=== PATIENT | male | born 1980 | race Caucasian/White ===

== ENCOUNTER 2023-08-23 12:03 | Inpatient (IN) | payer OTHER, SELFPAY ==
[2023-08-23] VITALS (23 sets, daily range): BP systolic 123–164; BP diastolic 81–114; BMI 25.1
--- NOTE | 2023-08-23 10:46 | HPS.HSE ---
Family Physician
-
Family Physician: [facility], [facility],
Chief Complaint
-
acute chest and back pain
History of Present Illness
43 y/o white male, PMH notable for current tobacco abuse, occasional marijuana use, mild COVID in 2020. Denies FH CAD.
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 EMS was called, prehospital EKG with anterior ST elevations and STEMI alert was called. In ER, he was given aspirin 324mg, brilinta
180mg, 5000u heparin. CP continued with new radiation to upper back/shoulders, SBP 160s and similar in all four extremities. EKG in ER with worsening anterior ST elevations with now reciprocal inferior ST depression.
Brought emergently to [facility].
Medical History
Past Medical History
Past Medical History: Reports Other (RENAL- New ongoing workup for enlarged kidney)
Additional Past Medical History:
musculoskeletal back pain
Past Surgical History: Reports None
Social History
Tobacco: Smoker (1ppd)
Alcohol: None
Drug: Marijuana (Vapes, 1-2x/week)
Personal:
Living: With Family
Employment: Employed
Family History
Family History: Not pertinent
Allergies / Home Medications
Allergies reflects when Allergies were last updated in [facility].
Home Medications with original date entered in [facility]
Allergy/Medication List:
ALLG: NKDA
MEDS: flexeril- takes prn back pain/spasm, about 3-4x/day
'anti-inflammatory'- unsure of name of med
Review of Systems
-
History Source: Patient
A 12 point ROS was completed and negative except as noted: Yes
Respiratory: Reports Other (dyspnea)
Cardiac: Reports Chest Pain (radiating to back)
Physical Exam
Vital Signs
Vital Signs
Pulse Resp BP Pulse Ox
88 24 164/96 100
08/23/23 10:36 08/23/23 10:36 08/23/23 10:36 08/23/23 10:36
Physical Exam
General: Well Developed, Appears in Distress and Other (Defered d/t urgent nature of cath)
Data Reviewed
-
Medical Tests (Nuc Med, Echo, EKG etc): Image Personally Visualized and interpreted, Report Reviewed by me and Discussed with Physician
Lab Data: Labs Reviewed by me and Discussed with Physician
Impression/Plan
-
PCP: [facility], Saritha Miranda, Patel,
CDY: None prior to admission- Yunior Bacon,
43 y/o white male, PMH notable for current tobacco abuse, occasional marijuana use, mild COVID in 2019. 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 EMS was called, prehospital
EKG with anterior ST elevations and STEMI alert was called. In ER, he was given aspirin 324mg, brilinta 180mg, 5000u heparin. CP continued with new radiation to upper back/shoulders, SBP 160s and similar in all four extremities. EKG in ER with
worsening anterior ST elevations with now reciprocal inferior ST depression.
Brought emergently to [facility].
LHC- 100% prox LAD thrombotic occlusion
s/p thrombectomy, angioplasty and ISAIAH
Integrilin bolus x2 with infusion started
IMPRESSION/PLAN:
Acute Anterior STEMI
s/p prox LAD thrombectomy w/ISAIAH
Admit IVU/monitor tele
First trop 0.017, trend to peak
Integrilin gtt at 13ml/hr for 18 hours
Echo in AM
DAPT w/asa, Brilinta- CM to check cost
new start metoprolol xl 25/d, lisinopril 2.5mg/d
Check lipid profile in AM, new start high intensity statin therapy w/atorvastatin 80/d
cardiac rehab consult
followup at [facility] at d/c
Tobacco abuse/marijuana use-
must quit, pt in agreement
NicoDerm patch ordered
New enlarged kidney with bladder wall thickening-
new finding on CT scan while in [facility] ER for right flank pain 1 week ago.
followed up with urology and scheduled for repeat CT with contrast
right flank pain thought to be musculoskeletal and he was started on flexeril/anti-inflammatory meds with relief of symptoms.
will continue with outpatient workup and care for these issues
--- NOTE | 2023-08-23 10:49 | ED.GENMED ---
History of Present Illness
General
Chief Complaint: Chest Pain
Source: patient and ambulance crew
Time Seen by Provider: 08/23/23 10:45
Travel History
Have you had any contact with someone who has COVID-19?: No
Do you have any symptoms of coronavirus? Fever > 100 degrees, chills, cough, shortness of breath, sore throat, loss of taste or smell, muscle aches, or headache?: No
History of Present Illness
History of Present Illness:
43-year-old male presents to the emergency room complaining of chest pain. Patient was a prehospital STEMI alert. 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 The
discomfort radiated primarily to the left arm though there was some discomfort in the right arm as well. Symptoms began shortly before 911 was called. He describes the arm discomfort as a burning pain. He denies any focal weakness. Pain is rated
at 10 out of 10. He feels like his heart is about to explode. Patient denies any known medical history. He does occasionally use marijuana but denies drug or alcohol use. He specifically denies cocaine or methamphetamine use. Unaware of any
significant family history.
Phy Exam
Physical Exam
Physical Exam:
General: Awake, Alert, Oriented X3. Patient appears uncomfortable
Vitals: Mildly hypertensive
Head: Atraumatic
Eyes: Pupils equal, EOMI
Throat: Airway intact, no exudates
Neck: Trachea midline
Lungs: Clear and equal b/l
Heart: Regular rate, no murmurs
Abd: Soft, Nontender, No pulsatile mass
Neuro: Cranial nerves II through XII intact, no focal weakness, normal sensation throughout
Skin: Warm, dry, no rash
Extremities: pulses equal b/l, no edema
Scores
Heart Score for Chest Pain Patients
STEMI patient?: Yes
Course
Orders/Labs/Results
Orders:
Orders
08/23/23 Lunch
Cholesterol Lowering
At Your Request: Full Participation
Cholesterol Lowering: Sodium, 2 Gram
08/23/23 10:45
Fentanyl Citrate/Pf [Sublimaze] 100 mcg .ROUTE .STK-MED ONE
Heparin 10,000 units .ROUTE .STK-MED ONE
Midazolam HCl [Versed] 2 mg .ROUTE .STK-MED ONE
08/23/23 10:49
CMP [Comprehensive Metabolic Panel] Urgent
Complete Blood Count/With Diff Urgent
PT/INR [Prothrombin Time] Urgent
PTT Urgent
Troponin I Urgent
Heparin 1000 Units/500 ml [Heparin] 1,000 units in 500 ml .ROUTE .STK-MED
Heparin Sodium,Porcine/Ns/Pf [Heparin 2000 Units/1000 ml] 2,000 unit in 1,000 ml .ROUTE .STK-MED
Lidocaine HCl/Pf [Xylocaine-Mpf 1% Vial] 100 mg .ROUTE .STK-MED ONE
Nitroglycerin [Tridil] 1,500 mcg .ROUTE .STK-MED ONE
Verapamil Injectable [Isoptin/Verapamil Injection] 5 mg .ROUTE .STK-MED ONE
08/23/23 10:52
Heparin 5,000 units .ROUTE .STK-MED ONE
Ticagrelor [Brilinta] 180 mg .ROUTE .STK-MED ONE
08/23/23 10:53
Nitroglycerin Sublingual [Nitrostat (Sublingual)] 0.4 mg .ROUTE .STK-MED ONE
08/23/23 10:55
Verapamil Injectable [Isoptin/Verapamil Injection] 5 mg .ROUTE .STK-MED ONE
08/23/23 11:10
Admit Patient As Directed
Co-Sign Provider:
Level of Care: Inpatient admission
Assign to:: IVU
Physician / Group: cbc
Diagnosis: STEMI
Reason for Hospitalization: STEMI, LAD PCI
Expected length of stay greater than two midnights?: Yes
ELOS- Estimated Length of Stay in days: 2
I certify the patient meets the requirements for IP care: Yes
Electrocardiogram (*1) Urgent
Reason for Study: Other
Other Reason for Exam: s/p intervention
Comment: cbc
Code Status As Directed
Resuscitation Status: Full Code
CARDIAC REHAB CONSULT Routine
Co-Sign Provider:
Type of Cardiac Rehab Referral: Outpatient
Diagnosis: STEMI
Date of Diagnosis/Surgery: 08/23/23
Referring Provider: Yunior Bacon
Acetaminophen [Tylenol] 650 mg PO Q4HPRN PRN
Morphine Sulfate 2 mg IV Q1HPRN PRN
Activity As Directed
Activity Level: Out of Bed- Chair
Comment: bed/chair rest for 2 hours then out of bed ad hemalatha
Data Compiler Procedure As Directed
Cardiac Cath Procedure: percutaneous coronary intervention
Intake/ Output As Directed
Frequency: Per unit guidelines
Notify MD As Directed
Notify physician if: immediately for chest pain or bleeding from access site(s)
Radial Artery Hemostasis Method As Directed
Instructions:: 3 mL out at 2 hour posts placement of band
3 mL out at 2 1/2 hours post placement of band
3 mL out at 3 hours post placement of band
Off at 3 1/2 hours post placement of band
If any oozing or hemotoma occurs:: re-inflate band and call provider
Site Checks As Directed
Check access site for bleeding/hematoma: Yes
Comment: on arrival, Q15min x4, Q30min x2, Q1 hr x2, Q2 hr x2, Q4 hr or per
protocol
Vascular Checks As Directed
Location: distal to access site - pulse check
Frequency: Other
Comment: on arrival, Q15min x4, Q30min x2, Q1 hr x2, Q2 hr x2, Q4 hr or per protocol
Vital Signs As Directed
Frequency: Other
Additional Instructions:: on arrival, Q15min x4, Q30min x2, Q1 hr x2, Q2 hr x2, then Q4 hr or per unit
protocol
08/23/23 11:11
DX Deep Vein Thrombosis Video Routine
08/23/23 11:15
0.9% Sodium Chloride 1000 ml [Nss] 1,000 ml IV PER PROTOCOL
Infusion rate in mL/kg/hr:: 1.5
Infusion rate in mL/hr:: 126
Duration of infusion (hours):: 5
EPTIFIBATIDE 75 mg/100 mL [Integrilin] 75,000 mcg in 100 ml IV ORDERED RATE
08/23/23 11:16
Eptifibatide [Integrilin] 20 ml .ROUTE .STK-MED
08/23/23 11:17
EPTIFIBATIDE 75 mg/100 mL [Integrilin] 75,000 mcg in 100 ml .ROUTE .STK-MED
08/23/23 11:48
Case Management Consult ONCE
Case Management Consult: Other
Comment: brilinta cost
08/23/23 12:00
Potassium Chloride [KCl] 20 meq PO ONCE ONE
08/23/23 16:00
Troponin I Q6H
08/23/23 18:00
Atorvastatin [Lipitor] 80 mg PO QPM
Enoxaparin Sodium [Lovenox] 40 mg SC QPM
08/23/23 20:00
Ticagrelor [Brilinta] 90 mg PO BID
08/23/23 22:00
Troponin I Q6H
08/24/23 04:00
Troponin I Q6H
08/24/23 06:00
Echo 2D MMode Color/Doppler Routine
Reason for Study: STEMI
Comment: BACON
Electrocardiogram (*1) IN AM
Reason for Study: Other
Other Reason for Exam: s/p intervention
Comment: cbc
Basic Metabolic Panel IN AM
Cardiovascular Evaluation IN AM
Complete Blood Count/No Diff IN AM
08/24/23 08:00
Aspirin Chewable [Low Strength Aspirin] 81 mg PO DAILY
Lisinopril [Zestril] 2.5 mg PO DAILY
Metoprolol Xl [Toprol Xl] 25 mg PO DAILY
08/25/23 06:00
Basic Metabolic Panel IN AM
Complete Blood Count/No Diff IN AM
Abnormal Lab Results
08/23/23 08/23/23 08/23/23
10:49 11:15 11:39
Carbon Dioxide 19 L mmol/L
(22-30)
Glucose 163 H mg/dl
(70-99)
POC ACT Low Range 342 H Seconds > 397 H Seconds
(116-155) (116-155)
08/23/23 10:49
08/23/23 10:49
Vital Signs
Initial and Last Documented VS:
Initial Vital Signs
BP
164/96
08/23/23 10:30
Last Documented Vital Signs
Pulse Resp BP Pulse Ox
67 24 139/105 100
08/23/23 13:00 08/23/23 10:36 08/23/23 13:00 08/23/23 13:00
MDM/Problems Addressed
Differential Diagnosis Includes:
STEMI from coronary artery disease, STEMI from vasospasm, thoracic aortic dissection
MDM/Problems Addressed:
Patient presents with severe chest pain. EKG is consistent with an anterior wall CO. Pulses are palpable throughout. Sensation is equal throughout. Consideration given to a thoracic dissection. However given his normal peripheral vascular exam
and neurologic exam and the urgency to intervene on what appears to be a LAD patient will be taken promptly to the Data Comp[facility]. Dr. Auguste at the bedside to evaluate the patient.
*Pulse Oximetry
Patient hypoxic: no
*EKG
Interpreted by ED Provider?: Yes
Interpretation: abnormal
Rate: normal
Rhythm: sinus
Ischemia: ST elevation (v2-v4 with reciprocal changes)
*Race Starter Interpretation
Rate: normal
Interpretation: normal
Rhythm: sinus
*Critical Care Note
Total Time (30-74mins, 75-104mins- exclusive of procedures): 20 min
comment:
Critical care statement: A total of 20 minutes of critical care time was provided for this patient. This includes management of unstable vital signs, evaluation of the patient at bedside, reviewing the patient's pertinent medical records, discussion
with consultants, review of old EKGs and review of pertinent medical records. This time with separate from time utilized to perform the aforementioned documented procedures
ED Attending Note
-
Portions of this chart may have been created with voice recognition software.� Occasional wrong word or��sound alike� substitutions may have occurred due to the inherent limitations of voice recognition software.
Discharge Plan
Departure
Patient Disposition: Admit
Date of Disposition: 08/23/23
Time of Disposition: 10:56
Admit to: lab nurse
Presentation/result/management discussed w/ accepting MD/DO: Dr. Auguste
Condition: Serious
Discharge Problem:
Acute ST elevation myocardial infarction (STEMI) of anterior wall
Interventions
Interventions:
*Nursing Disposition Last Done: 08/23/23 10:45
ED- Cardiac Assessment Last Done: 08/23/23 10:46
Discharge Date and Time
Discharge Date/Time: 08/23/23 10:45
[2023-08-23 10:59] LABS: % Basophils 1.1 % (0-2); % Immature Granulocytes 0.5 % (0-0.5); % Lymphocytes 34.9 % (20.5-51.1); % Monocytes 7.2 % (1.7-9.3); % Neutrophils 54.3 % (42.2-75.2); Absolute Basophils 0.1 10^3/uL (0-0.2); Absolute Eosinophils 0.2 10^3/uL (0-0.7); Absolute Lymphocytes 2.8 10^3/uL (1.2-3.4); Absolute Monocytes 0.6 10^3/uL (0.1-0.6); Absolute Neutrophils 4.4 10^3/uL (1.4-6.5); Hematocrit 47.3 % (39.0-52.0); Hemoglobin 16.6 g/dL (13.0-18.0); Mean Corp Hgb Conc. 35.1 g/dL (33.0-37.0); Mean Corpuscular Hgb 29.1 pg (27.0-31.0); Mean Platelet Volume 10.1 fL (7.4-10.4); Nucleated Red Blood Cells % 0 % (-); Platelet Count 301 10^3/uL (130-400); White Blood Cell Count 8.1 10^3/uL (4.8-10.8)
[2023-08-23 11:08] LABS: APTT 24.6 Sec (23.4-35.0); INR 0.95; PT 12.7 Sec (11.4-14.6)
[2023-08-23 11:09] LABS: ALT (SGPT) 31 U/L (0-50); AST (SGOT) 32 U/L (17-59); Alkaline Phosphatase 126 U/L (38-126); Blood Urea Nitrogen 13 mg/dl (9-20); Calcium 10.2 mg/dl (8.4-10.2); Carbon Dioxide 19 mmol/L (22-30); Chloride 106 mmol/L (98-107); Estimated Creatinine Clearance 95 ml/min; Glucose 163 mg/dl (70-99); Potassium 3.8 mmol/L (3.5-5.1); Sodium 136 mmol/L (135-145); Total Bilirubin 0.6 mg/dl (0.2-1.3); Total Protein 7.7 g/dl (6.3-8.2); eGFR > 60.00
[2023-08-23 11:20] LABS: ACT-LR - POC 342 Seconds (116-155)
[2023-08-23 11:21] LABS: Troponin I 0.017 ng/ml
[2023-08-23] MEDS: NSS 1000 IV (12:10)
--- NOTE | 2023-08-23 12:16 | ITS.CL.ANGIO ---
Roll Hauler - Angioplasty
Angioplasty
Procedure Report:
CARDIAC CATHETERIZATION REPORT
Date of Procedure: 08/23/2023
Referring: [facility] emergency room.
INDICATION: Acute ST elevation myocardial infarction.
PROCEDURE:
1. Left heart catheterization.
2. Left ventriculography.
3. Coronary angiography.
4. Aspiration thrombectomy.
5. Successful, IVUS guided PCI of the proximal LAD.
ACCESS:
6 Barbadian right radial artery.
CATHETERS:
1. 6 Barbadian angled pigtail catheter.
2. 6 Barbadian JR4.
3. 6 Barbadian JL 3.5.
4. 6 Barbadian EBU 3.5 guide.
HEMODYNAMIC DATA
Weight (kg): 84.0
AO (s/d/x, mmHg): 145/41/121
LV (s/x mmHg): 146/17 (A wave to 36)
LEFT VENTRICULOGRAPHY: Performed in an CALIXTO projection. Normal-sized ventricle with akinesis of the anterior and anterolateral wall with dyskinesis of the apex and severe reduction in left ventricular systolic function. LV ejection fraction
estimated at 35%. There is no significant mitral valve regurgitation. There is no aortic valve insufficiency. The aortic root is of normal size. The ascending aorta, aortic arch and visualized ascending aorta appear normal without evidence of
dissection.
CORONARY ANGIOGRAPHY
Dominance: Right.
Left Main: Normal size, bifurcating vessel. There is no coronary artery disease.
LAD: Normal size vessel giving rise to 2 significant diagonals. The vessel is acutely occluded in its proximal margin, immediately after the first high diagonal. There are percent lesions in the mid vessel. There is a 50% lesion in the ostium
of the first diagonal.
Ramus: Congenitally absent.
Circumflex: Normal size, nondominant vessel giving rise to 2 obtuse marginals. OM1 is a small vessel, less than 1.5 mm in diameter. OM 2 is a large vessel supplying the majority of the inferolateral wall. This vessel subsequently bifurcates
into 2 daughter vessels. There is no coronary artery disease.
RCA: Large size, dominant vessel with a significant posterolateral arcade. The true RPDA is a relatively small vessel that supplies the proximal inferior interventricular septum. The mid and distal inferior septum are supplied by the distal RV
marginal branch.
INTERVENTION(S)
1. Successful aspiration thrombectomy of the proximal LAD occlusion.
2. Successful IVUS guided PCI of the 100% proximal LAD occlusion (Xience Skypoint 3.0 x 15 ISAIAH, postdilated with a 3.25 NC balloon) with reduction in stenosis to 0%, restoring MICHAEL-3 flow.
Narrative:
The decision was made to proceed with percutaneous coronary intervention. The diagnostic catheter was removed over a wire and a 6Fr EBU 3.5 guiding catheter was advanced to the aortic root and seated in the left main coronary artery. Additional
heparin was given and a Power Turn Flex wire was advanced into the LAD, though the exact position was unclear due to rotation of the heart. The thrombotic, proximal LAD lesion was predilated with a 2.0 x 12 semi-compliant balloon to 12 marcos. This
did improve flow into the LAD, though the exact course was still unclear. The semicompliant balloon was removed and a 3.0 x 12 semicompliant balloon was advanced. The proximal lesion was predilated again, again with some improvement in flow.
There was still a significant thrombus burden and haziness within the proximal LAD. Eptifibatide was given as a double bolus and drip. The decision was made to proceed with aspiration thrombectomy. The GABY catheter was advanced and aspiration
was performed in the proximal LAD. Contents of the catheter showed a small amount of white thrombus.
The GABY catheter was withdrawn and a GuideLiner was advanced for better visualization of the LAD. A Xience Skypoint 3.0 x 15 drug-eluting stent was advanced. The stent was deployed at 12 atmospheres. The stent balloon was removed.
The decision was made to perform intracoronary imaging. An IVUS catheter was advanced through the guiding catheter and into the ostium of the artery. Ring down was performed once the imaging crystal was no longer inside of the guiding catheter. The
IVUS catheter was advanced into the mid LAD. Intravascular ultrasound was performed in a retrograde fashion using a slow pullback. Intracoronary imaging demonstrated significant atherosclerosis within the media of the entire vessel. The deployed
stent appeared to be sized correctly to the inner lumen with mild underexpansion in the mid section..
The IVUS catheter was removed. A 3.25 x 12 noncompliant balloon was advanced into the stent and the stent was postdilated to 12 atmospheres. Angiography was performed in orthogonal views, confirming good stent expansion and an excellent
angiographic result. The coronary wire was withdrawn and the guide was disengaged from the artery. The catheter was removed over a standard J-wire.
Closure Device: Vascular band.
Radiation (mGy): 1113.26
DAP (cm2.Gy): 96.1539
Fluoroscopy time (minutes): 11.1
Sedation time (minutes): 48
CONCLUSIONS
1. Right dominant circulation with a 30% lesion in the mid LAD and ST elevation myocardial infarction due to acute, thrombotic occlusion of the proximal LAD, status post successful aspiration thrombectomy and IVUS guided PCI of the culprit lesion
(Xience Skypoint 3.0 x 15 ISAIAH, postdilated with a 3.25 NC balloon) with reduction in the proximal LAD stenosis to 0%, restoring MICHAEL-3 flow.
2. Mildly elevated filling pressures (LVEDP = 17 mmHg at 84.0 kg) with evidence of diastolic dysfunction (A wave to 36 mmHg).
RECOMMENDATIONS:
1. Expectant management after cardiac catheterization via right radial approach.
2. Limited weight bearing on the right wrist for one week.
3. Continue eptifibatide for 18 hours. Dual antiplatelet therapy with aspirin and ticagrelor for at least 12 months, followed by aspirin indefinitely.
4. Secondary prevention with high-dose, high potency statin.
5. Echocardiogram ordered and pending.
6. Guideline directed medical therapy as hemodynamics tolerate.
7. Referral to cardiac rehab.
Copy to: Yunior Bacon D.O.
Yunior Bacon, DO, FACC, FACP
[2023-08-23] MEDS: TYLENOL 650 MG PO ×2 (12:41→17:20)
[2023-08-23 12:44] LABS: ACT-LR - POC > 397 Seconds (116-155)
[2023-08-23] MEDS: KCL 20 MEQ PO (12:49)
[2023-08-23] MEDS: MORPHINE SULFATE 2 MG IV ×2 (13:11→19:44)
[2023-08-23] MEDS: NICODERM TRANSDERMAL 14 MG TRANSDERM (13:16)
--- NOTE | 2023-08-23 13:27 | CM ---
Chart reviewed. Patient is independent of ADLS, lives with his in a [address], 7 [address], 0 DME. Plan is for the patient to return home. CM to follow
--- NOTE | 2023-08-23 13:28 | CM ---
Pricing on Brilinta through the patient's [employer], ID# [id number], is $125 for 90 day supply and $50 for retail. Patient qualifies for the $5 a month coupon. Will review with the patient.
--- NOTE | 2023-08-23 13:33 | PTCARENOTE ---
Pt c/o increased midsternal chest discomfort, rated 4/10. Dayana Keyes and Dr Bacon notified. Pt med with Morphine 2 mg IV with some relief.
[2023-08-23] MEDS: LIPITOR 80 MG PO (17:22)
[2023-08-23] MEDS: INTEGRILIN 100 IV (18:07)
[2023-08-23] MEDS: ZOFRAN 4 MG IV (18:32)
--- NOTE | 2023-08-23 18:45 | PTCARENOTE ---
Pt attempting to sleep this afternoon, c/o still having back discomfort and chest discomfort that has lessened, med with Tylenol without much relief. Pt later c/o nausea and vomited approx [address] Slater aware. Zofran 4 mg IV ordered
and given with relief.
[2023-08-23] MEDS: MAALOX 30 ML PO (19:16)
--- NOTE | 2023-08-23 19:27 | PTCARENOTE ---
Rec'd Pt post cath, c/o chest pain, rated 3/10, midsternal. 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
--- NOTE | 2023-08-23 19:43 | PTCARENOTE ---
Pt chest discomfort increased this evening mid sternal and back to 5/10. Dr Bacon aware of Pain and elevated BP. EKG ordered and obtained. Maalox 30 ml ordered and given, Pt has had some relief with Maalox, pain decreased from 5/10 to 4/10.
--- NOTE | 2023-08-23 19:50 | PTCARENOTE ---
Patient with 4 out 10 central chest pain and pain between his shoulder blades, describes as squeezing and pulsating pain. Maalox given earlier brought his pain from down to 4. Morphine IV given. BP 133/99, laying on his side. NSR on telemetry,
troponin pending
[2023-08-23] MEDS: BRILINTA 90 MG PO (20:10)
--- NOTE | 2023-08-23 20:23 | W.PN.UPDATE ---
Update Note
Progress Note Update
I was called to the bedside by the nursing staff for recurrent chest pain.
EKG shows ST elevation in the anteroseptal leads, improved from prior but still present. Q waves are present.
The patient reports that he was chest pain free after his PCI for STEMI and then the pain returned.
Chest pain is 4-5/10, similar to the pain that caused him to present this AM.
On exam, he appears generally comfortable.
He is warm and well perfused.
No murmur, rub, gallop.
Initial troponin was 0.017. Second troponin was 'lost'. Replacement troponin now 228.
Given recurrence of pain, we will repeat coronary angiography to ensure he is not having a secondary event (i.e. acute stent thrombosis).
His stable/improving EKG is somewhat reassuring, but the ST elevations persist, making diagnosis more difficult.
I believe that the risk of repeat diagnostic coronary angiography is lower than the risk of untreated stent thrombosis.
--- NOTE | 2023-08-23 20:28 | PTCARENOTE ---
Troponin 228. Dr. Bacon notified, pain 1 out 10 after morphine
--- NOTE | 2023-08-23 21:16 | ITS.CL.CATH ---
[facility] - Catheterization
Cardiac Catheterization
Procedure Report:
CARDIAC CATHETERIZATION REPORT
Date of Procedure: 08/23/2023
Referring: Yunior Bacon D.O.
INDICATION: Recurrent chest pain, concern for acute stent thrombosis.
PROCEDURE:
1. Left heart catheterization.
2. Coronary angiography
3. Left ventriculography.
ACCESS:
6 American right radial artery.
CATHETERS:
1. 5 American JR4.
2. 5 American JL 3.5.
3. 5 American angled pigtail.
HEMODYNAMIC DATA
Weight (kg): 83.9
AO (s/d/x, mmHg): 147/107/126
LV (s/x mmHg): 148/15 (A wave to 34)
LEFT VENTRICULOGRAPHY: Performed in an [place] projection. Normal left ventricular size with severe hypokinesis of the anterior and anterolateral wall from apex to base. Moderately reduced systolic function. Left ventricular ejection fraction
estimated at 35%. There is no mitral valve regurgitation. There is no aortic valve insufficiency. The aortic root, visualized ascending and descending aorta appear normal.
CORONARY ANGIOGRAPHY
Dominance: Right.
Left Main: Normal size, bifurcating vessel. There is no coronary artery disease.
LAD: Normal size vessel giving rise to 2 significant diagonals. A patent stent is visible in the proximal vessel. There is a 30% lesion in the mid LAD. The previously occluded apical LAD is now recanalized though a small amount of residual
thrombus persists in the terminal vessel.
Ramus: Congenitally absent.
Circumflex: Normal size, nondominant vessel giving rise to 2 obtuse marginals. OM1 is a subone 0.5 mm vessel. OM 2 is a large vessel which subsequently bifurcates into 2 daughter vessels and supplies the majority of the inferolateral wall.
There is no coronary artery disease.
RCA: Large size, dominant vessel with a significant posterolateral arcade. The RPDA consists of 2 independent vessels. The true RPDA originates from the distal RCA and supplies the proximal inferior interventricular septum. The mid and distal
inferior septum are supplied by an RPDA branch from the distal RV marginal branch. There is no coronary artery disease.
INTERVENTION(S)
None.
Closure Device: Vascular band.
Radiation (mGy): 313.60
DAP (cm2.Gy): 21.1086
Fluoroscopy time (minutes): 3.2
Sedation time (minutes): 15
CONCLUSIONS
1. Right dominant circulation with a patent stent in the proximal LAD and resolving thrombus in the terminal LAD.
2. Mildly elevated filling pressures (LVEDP = 15 mmHg at 83.9 kg) with evidence of diastolic dysfunction (A wave to 34 mmHg).
3. No epicardial evidence of recurrent acute coronary syndrome.
RECOMMENDATIONS:
1. Expectant management after cardiac catheterization via right radial approach.
2. Limited weight bearing on the right wrist for one week.
3. Routine postprocedure management as previously ordered.
Copy to: Yunior Bacon D.O.
Yunior Bacon DO, FACC, FACP
--- NOTE | 2023-08-23 21:35 | PTCARENOTE ---
Patient received from chemical lab supervisor, no intervention. Right radial band 13 cc of air. POX 98%. Denies chest pain, remains hypertensive 145/106, NSR, at bedside
[2023-08-23] MEDS: XANAX 0.25 MG PO (22:53)
[2023-08-23] MEDS: PERCOCET 5/325 1 TABLET PO (23:27)
--- NOTE | 2023-08-23 23:37 | PTCARENOTE ---
Patient restless and having trouble sleeping. Xanax given. Percocet given for 8 out of 10 pain between his shoulder blades. TR band in place. All air removed. a bedside
[2023-08-24] VITALS (7 sets, daily range): BP systolic 111–135; BP diastolic 76–95
[2023-08-24] MEDS: INTEGRILIN 100 IV (00:09)
--- NOTE | 2023-08-24 01:01 | PTCARENOTE ---
Patient resting comfortable, pain between shoulder blades improved, at bedside
--- NOTE | 2023-08-24 02:22 | PTCARENOTE ---
Patient pain free, feeling better. Right radial dressing CDI. EKG completed, labs collected. BP 135/94, NSR in 80's, call grace in reach
[2023-08-24 02:25] LABS: Hematocrit 43.6 % (39.0-52.0); Hemoglobin 15.8 g/dL (13.0-18.0); Mean Corp Hgb Conc. 36.2 g/dL (33.0-37.0); Mean Corpuscular Hgb 29.3 pg (27.0-31.0); Mean Corpuscular Volume 80.7 fL (80.0-94.0); Mean Platelet Volume 9.9 fL (7.4-10.4); Platelet Count 240 10^3/uL (130-400); Red Cell Dist. Width 12.2 % (11.5-14.5); White Blood Cell Count 14.1 10^3/uL (4.8-10.8)
[2023-08-24 02:48] LABS: Blood Urea Nitrogen 11 mg/dl (9-20); Calcium 9.6 mg/dl (8.4-10.2); Carbon Dioxide 22 mmol/L (22-30); Chloride 101 mmol/L (98-107); Estimated Creatinine Clearance > 125 ml/min; Glucose 119 mg/dl (70-99); HDL Cholesterol 53 mg/dl; LDL Cholesterol, Calculated 132 mg/dl; Potassium 4.4 mmol/L (3.5-5.1); Sodium 134 mmol/L (135-145); Total Cholesterol 206 mg/dl (50-199); Triglyceride 109 mg/dl (10-149); Very Low Density Lipoprotein 21 mg/dl (0-30); eGFR > 60.00
--- NOTE | 2023-08-24 07:10 | W.PN.CD ---
Today's Communication / Plan
-
Increase metoprolol to 25 bid
increase lisinopril to 2.5 bid
monitor
ECHO
Impression / Plan
-
Anterior STEMI
- Successful prox LAD PCI with ISAIAH restoring flow
- Relook angio negative for stent thrombosis
-Peak trop 228
- ECG this AM with Q waves V1-V3 and persistent ST elevations V1-V4 consistent with extensive infarction
- Telem shows SR, VPDs and a 6 beat run of VT
-No CHF sxs and no exam finding suggesting pulm edema
-BP and HR will support increase in Metoprolol succinate to 25 bid and lisinopril to 2.5 bid
- continue DAPT
- need case supervisor to sudhakar jasso and Alva
-ECHO today
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
Lipids
- High intensity statin to get LDL ideally to 55
- Baseline LDL 129, HDL 53
Hyperglycemia
-A1c pending
Today can ambulate lightly and shower in afternoon
Will need monitoring for additional 48 hours given size of infarction. IF continues to have significant runs of NSVT can consider Life Vest
CCT 35min
Physical Exam
Vital Signs/Labs
Vital Signs
Temp Pulse Resp BP Pulse Ox
98.4 F 76 16 129/90 94
08/24/23 05:20 08/24/23 06:30 08/24/23 05:20 08/24/23 05:17 08/24/23 05:20
08/23/23 08/24/23 08/25/23
06:59 06:59 06:59
Actual Weight 185 lb 3.013 oz
08/24/23 02:18
08/24/23 02:18
PT 12.7 Sec (11.4-14.6) 08/23/23 10:49
INR 0.95 08/23/23 10:49
APTT 24.6 Sec (23.4-35.0) 08/23/23 10:49
Triglycerides 109 mg/dl (10-149) 08/24/23 02:18
LDL Cholesterol, Calc 132 mg/dl 08/24/23 02:18
VLDL Cholesterol, Calc 21 mg/dl (0-30) 08/24/23 02:18
HDL Cholesterol 53 mg/dl 08/24/23 02:18
LAB Results
08/23/23 08/23/23 08/23/23
10:49 17:32 19:21
Troponin I 0.017 Cancelled 228.000 H*
08/23/23 08/24/23
22:00 02:18
Troponin I Cancelled 143.000 H* D
Physical Exam
Constitutional: No acute distress and Comfortable
Cardiovascular: Rhythm & rate is regular, S1S2 is normal and Murmur/rub/gallop absent
Respiratory: Respiratory effort normal, Lungs clear to auscul., Wheeze Absent, Crackles Absent and Rhonchi Absent
GI: Soft and Non tender
Neuro/Psych: AO x 3 and Motor deficits absent
Other: Cath Site (clean and dry)
Data Reviewed
-
Date of Service: August 24, 2023
[2023-08-24] MEDS: TOPROL XL 25 MG PO ×2 (07:18→19:44)
[2023-08-24] MEDS: NICODERM TRANSDERMAL 14 MG TRANSDERM (07:18)
[2023-08-24] MEDS: LOW STRENGTH ASPIRIN 81 MG PO (07:18)
[2023-08-24] MEDS: ZESTRIL 2.5 MG PO ×2 (07:18→19:43)
[2023-08-24] MEDS: BRILINTA 90 MG PO ×2 (07:19→19:43)
[2023-08-24] MEDS: ZESTRIL PO (07:31)
[2023-08-24] MEDS: TOPROL XL PO (07:31)
[2023-08-24 09:03] LABS: Glycohemoglobin (HgbA1c) 5.7 % (4.0-5.6)
--- NOTE | 2023-08-24 09:49 | CARDSERVLU ---
Echocardiogram with Lumason completed after protocol screening completed. Allergies verified.
Patent IV site: _Right antecubital site clear____
IV site flushed with 0.9% NaCl pre and post administration.
Diluted bolus method utilized to enhance visualization of ventricular cuello.
Total volume given: ___3_ mL
Patient tolerated all procedures well without complications.
--- NOTE | 2023-08-24 10:33 | CM ---
Pricing on Farxiga 10 mg through patient's [employer] needs a prior authorization. The PA can be called into . The cost will be $50 a month, but the patient qualifies for the $0 copay card
--- NOTE | 2023-08-24 11:02 | PTCARENOTE ---
Pt received from hourly shift manager RN. Jania, resting in bed. NSR on media monitor. VSS. Assessment documented. R radial dressing CDI. Neurovascular checks WDL. Pt without complaint at this time. Pt showered this morning. at bedside.
[2023-08-24] MEDS: LOVENOX 40 MG SC (17:45)
[2023-08-24] MEDS: LIPITOR 80 MG PO (17:45)
--- NOTE | 2023-08-24 21:11 | PTCARENOTE ---
Pt received start of shift, HR SR. Pt in bed with and bedside. Educated pt on purpose of brilinta and importance of medication adherence, pt states understanding. Pt denies any continuous CP (states uncomfortable when lying on L side, rated at
0.5 - 1/10 pain and relieved by repositioning), SOB, or lightheadedness/dizziness. Informed to notify RN if any changes, call grace within reach.
Pt questioning when he may resume sexual activity and when/if he can resume taking blue chew (ED medication).
[2023-08-24] MEDS: BENADRYL 25 MG PO (22:36)
[2023-08-25 04:51] VITALS: BP 125/84
[2023-08-25 05:08] LABS: Hematocrit 47.6 % (39.0-52.0); Hemoglobin 16.8 g/dL (13.0-18.0); Mean Corp Hgb Conc. 35.3 g/dL (33.0-37.0); Mean Corpuscular Hgb 29.6 pg (27.0-31.0); Mean Corpuscular Volume 83.8 fL (80.0-94.0); Mean Platelet Volume 10.1 fL (7.4-10.4); Platelet Count 225 10^3/uL (130-400); Red Blood Cell Count 5.68 10^6/uL (4.70-6.10); White Blood Cell Count 12.6 10^3/uL (4.8-10.8)
[2023-08-25 05:46] LABS: Blood Urea Nitrogen 13 mg/dl (9-20); Calcium 9.7 mg/dl (8.4-10.2); Carbon Dioxide 24 mmol/L (22-30); Chloride 105 mmol/L (98-107); Estimated Creatinine Clearance 116 ml/min; Glucose 99 mg/dl (70-99); Potassium 4.6 mmol/L (3.5-5.1); Sodium 133 mmol/L (135-145); eGFR > 60.00
[2023-08-25 07:43] VITALS: BP 107/81
--- NOTE | 2023-08-25 08:02 | W.PN.CD ---
Today's Communication / Plan
-
Start dapagliflozin.
Case management consult.
Discharge planning.
Impression / Plan
-
Impression/Plan: 43 y/o male admitted with large anterior STEMI.
#Anterior STEMI
-Successful proximal LAD PCI (Xience Skypoint 3.0 x 15 ISAIAH, post dilated with 3.25 NCB), restoring flow.
-Recurrent chest pain with abnormal EKG prompted relook angio, negative for stent thrombosis.
-Troponin peaked at 228.
-ECG shows Q waves V1-V3 and persistent ST elevations V1-V4 consistent with extensive infarction.
-DAPT with ASA and ticagrelor. Case management consult for ticagrelor.
#ICMO
-LVEF ~ 30%.
-No clinical evidence of HFrEF.
-Initiate GDMT as hemodynamics will tolerate.
-Continue metoprolol succinate, lisinopril (started yesterday).
-Start dapagliflozin (case management consult).
#HLD
-New diagnosis.
-Total cholesterol = 206, LDL = 132, HDL = 53, Triglycerides = 109.
-High intensity statin to get LDL ideally to 55.
#Hyperglycemia
-HbA1c = 5.7%.
#PPx
-SCD's for DVT/VTE.
-No role for PPI at this time.
#Dispo
-IVU status.
-Full code.
-Uptitrate medications.
-Possible DC tomorrow.
Critical Care Time = 31 minutes.
Subjective/Interval History:
No acute events.
No subjective complaints.
DATA:
Cardiac Catheterization/PCI, 08/23/2023:
CONCLUSIONS
1. Right dominant circulation with a 30% lesion in the mid LAD and ST elevation myocardial infarction due to acute, thrombotic occlusion of the proximal LAD, status post successful aspiration thrombectomy and IVUS guided PCI of the culprit lesion
(Xience Skypoint 3.0 x 15 ISAIAH, postdilated with a 3.25 NC balloon) with reduction in the proximal LAD stenosis to 0%, restoring MICHAEL-3 flow.
2. Mildly elevated filling pressures (LVEDP = 17 mmHg at 84.0 kg) with evidence of diastolic dysfunction (A wave to 36 mmHg).
Relook Angiography, 08/23/2023:
CONCLUSIONS
1. Right dominant circulation with a patent stent in the proximal LAD and resolving thrombus in the terminal LAD.
2. Mildly elevated filling pressures (LVEDP = 15 mmHg at 83.9 kg) with evidence of diastolic dysfunction (A wave to 34 mmHg).
3. No epicardial evidence of recurrent acute coronary syndrome.
Physical Exam
Vital Signs/Labs
Vital Signs
Temp Pulse Resp BP Pulse Ox
37.0 C 84 16 125/84 97
08/25/23 07:43 08/25/23 07:43 08/25/23 07:43 08/25/23 04:51 08/25/23 07:43
08/23/23 08/24/23 08/25/23
11:59 11:59 11:59
Actual Weight 84 kg
08/25/23 04:59
08/25/23 04:59
PT 12.7 Sec (11.4-14.6) 08/23/23 10:49
INR 0.95 08/23/23 10:49
APTT 24.6 Sec (23.4-35.0) 08/23/23 10:49
Triglycerides 109 mg/dl (10-149) 08/24/23 02:18
LDL Cholesterol, Calc 132 mg/dl 08/24/23 02:18
VLDL Cholesterol, Calc 21 mg/dl (0-30) 08/24/23 02:18
HDL Cholesterol 53 mg/dl 08/24/23 02:18
LAB Results
08/23/23 08/23/23 08/23/23
10:49 17:32 19:21
Troponin I 0.017 Cancelled 228.000 H*
08/23/23 08/24/23
22:00 02:18
Troponin I Cancelled 143.000 H* D
Physical Exam
Constitutional: No acute distress and Comfortable
EENT: Anicteric and Moist mucous membranes
Cardiovascular: Rhythm & rate is regular, Pedal edema is absent, JVD pressure is normal, S1S2 is normal and Murmur/rub/gallop absent
Respiratory: Respiratory effort normal, Lungs clear to auscul., Wheeze Absent, Crackles Absent and Rhonchi Absent
GI: Soft, Distention absent, Flat, Non tender and Normal bowel sounds
Neuro/Psych: AO x 3
Other: Cath Site (Right radial access site is C/D/I.)
Data Reviewed
-
Date of Service: August 25, 2023
Medical Decision Making: Reviewed Test Results, Independent Historian Assessment and Test Interpretation
EKG: Tracing Personally Visualized and interpreted and Report Reviewed by me
Echo: Tracing Personally Visualized and interpreted and Report Reviewed by me
X-Ray/CT/US/MRI/NUC/PET: Image Personally Visualized and interpreted and Report Reviewed by me
Medical Tests (PFT, Pathology etc): Image Personally Visualized and interpreted and Report Reviewed by me
Labs: Labs Reviewed by me
[2023-08-25] MEDS: ZESTRIL 2.5 MG PO ×2 (08:33→20:38)
[2023-08-25] MEDS: TOPROL XL 25 MG PO ×2 (08:33→20:39)
[2023-08-25] MEDS: LOW STRENGTH ASPIRIN 81 MG PO (08:33)
[2023-08-25] MEDS: BRILINTA 90 MG PO ×2 (08:33→20:38)
[2023-08-25] MEDS: NICODERM TRANSDERMAL 14 MG TRANSDERM (08:34)
[2023-08-25] MEDS: FARXIGA 10 MG PO (09:00)
[2023-08-25 11:48] VITALS: BP 99/57
[2023-08-25 15:30] VITALS: BP 111/71
[2023-08-25] MEDS: DULCOLAX 10 MG PO (16:35)
--- NOTE | 2023-08-25 16:36 | PTCARENOTE ---
The patient asked if he could have something to help him have a BM. He stated that he had a small one yesterday but is feeling uncomfortable now and feels he needs a little help. I encourage him to continue to ambulate in the halls. In addition, I
notified Dr. Bacon of the patient's request. Dulcolax was ordered and given to the patient.
[2023-08-25] MEDS: LOVENOX SC (17:38)
[2023-08-25] MEDS: LIPITOR 80 MG PO (17:38)
--- NOTE | 2023-08-25 17:41 | PTCARENOTE ---
The patient has been oob and ambulatory in the halls all shift. His vital signs have been stable. He remains in NSR. He has had no complaint of pain.
[2023-08-25 19:02] VITALS: BP 106/80
[2023-08-25 23:01] VITALS: BP 106/66
[2023-08-26 03:10] VITALS: BP 104/68
[2023-08-26 06:53] VITALS: BP 113/66
--- NOTE | 2023-08-26 08:22 | W.PN.CD ---
Addendum entered and electronically signed by Dipak Reyez MD 08/26/23 09:07:
I saw and examined the patient.
The BRINE ROOM LABORER's note was reviewed and I agree with the note.
Feels well. Denies any symptoms. He has been ambulate in the hallway without symptoms. I reviewed with him the importance of his medications. Also particularly discussed the importance of dual antiplatelet therapy. Agree with plans for
discharge later today.
Original Note:
Today's Communication / Plan
-
d/c home
Impression / Plan
-
Impression/Plan: 43 y/o male admitted with large anterior STEMI.
#Anterior STEMI
-Successful proximal LAD PCI (Xience Skypoint 3.0 x 15 ISAIAH, post dilated with 3.25 NCB), restoring flow.
-Recurrent chest pain with abnormal EKG prompted relook angio, negative for stent thrombosis.
-Troponin peaked at 228.
-ECG shows Q waves V1-V3 and persistent ST elevations V1-V4 consistent with extensive infarction.
-DAPT with ASA and ticagrelor.
#ICMO
-LVEF ~ 30%.
-No clinical evidence of HFrEF.
-Initiate GDMT as hemodynamics will tolerate.
-Continue metoprolol succinate, lisinopril, dapagliflozin
#Hyperlipidemia
-New diagnosis.
-Total cholesterol = 206, LDL = 132, HDL = 53, Triglycerides = 109.
-High intensity statin to get LDL ideally to 55.
#Hyperglycemia
-HbA1c = 5.7%.
#PPx
-SCD's for DVT/VTE.
-No role for PPI at this time.
#Dispo
-tolerating meds. D/C home
Subjective/Interval History:
No acute events.
Denies CP, palps, SOB
DATA:
Cardiac Catheterization/PCI, 08/23/2023:
CONCLUSIONS
1. Right dominant circulation with a 30% lesion in the mid LAD and ST elevation myocardial infarction due to acute, thrombotic occlusion of the proximal LAD, status post successful aspiration thrombectomy and IVUS guided PCI of the culprit lesion
(Xience Skypoint 3.0 x 15 ISAIAH, postdilated with a 3.25 NC balloon) with reduction in the proximal LAD stenosis to 0%, restoring MICHAEL-3 flow.
2. Mildly elevated filling pressures (LVEDP = 17 mmHg at 84.0 kg) with evidence of diastolic dysfunction (A wave to 36 mmHg).
Relook Angiography, 08/23/2023:
CONCLUSIONS
1. Right dominant circulation with a patent stent in the proximal LAD and resolving thrombus in the terminal LAD.
2. Mildly elevated filling pressures (LVEDP = 15 mmHg at 83.9 kg) with evidence of diastolic dysfunction (A wave to 34 mmHg).
3. No epicardial evidence of recurrent acute coronary syndrome.
Physical Exam
Vital Signs/Labs
Vital Signs
Temp Pulse Resp BP Pulse Ox
98.6 F 83 16 113/66 97
08/26/23 03:22 08/26/23 07:00 08/26/23 03:22 08/26/23 06:53 08/26/23 03:22
08/25/23 04:59
08/25/23 04:59
PT 12.7 Sec (11.4-14.6) 08/23/23 10:49
INR 0.95 08/23/23 10:49
APTT 24.6 Sec (23.4-35.0) 08/23/23 10:49
Triglycerides 109 mg/dl (10-149) 08/24/23 02:18
LDL Cholesterol, Calc 132 mg/dl 08/24/23 02:18
VLDL Cholesterol, Calc 21 mg/dl (0-30) 08/24/23 02:18
HDL Cholesterol 53 mg/dl 08/24/23 02:18
LAB Results
08/23/23 08/23/23 08/23/23
10:49 17:32 19:21
Troponin I 0.017 Cancelled 228.000 H*
08/23/23 08/24/23
22:00 02:18
Troponin I Cancelled 143.000 H* D
Physical Exam
Constitutional: No acute distress
Cardiovascular: Rhythm & rate is regular and Pedal edema is absent
Respiratory: Respiratory effort normal and Lungs clear to auscul.
Neuro/Psych: AO x 3
Other: Cath Site (R radial no hematoma, there is a palpable R radial pulse. )
Data Reviewed
-
Date of Service: August 26, 2023
EKG: Other (Tele: NSR 80's)
--- NOTE | 2023-08-26 08:26 | W.DS.TRANS ---
DC Summary - Wood Room Hand
-
Discharge Instructions:
Discharge Diagnosis/Procedures Anterior STEMI
S/p thrombectomy with angioplasty and stent to
left anterior descending artery
Diet Low Cholesterol,2 Gram Sodium
Activity No strenuous activity
Additional Activity For 6 weeks
Driving Restrictions No driving for 24 hours
Bathing Restrictions OK to Shower
Other Services Cardiac Rehab
Specialty Instructions Weigh Daily
Instructions:
Stand-Alone Forms: DC Instructions- Cath/EP Lab
Changes to Home Medications: Yes
Discharge Medications:
DC Medications w/original date entered in [facility]
albuterol sulfate 90 mcg/actuation aerosol inhaler 2 puff inhalation R Q4HPRN PRN sob 08/24/23
cyclobenzaprine 10 mg tablet 10 mg PO TID PRN back spasms 08/24/23
aspirin 81 mg chewable tablet (Children's Aspirin) 81 mg PO DAILY #1 tab 08/25/23
atorvastatin 80 mg tablet 80 mg PO QPM #90 tabs 08/25/23
dapagliflozin propanediol 10 mg tablet (Farxiga) 10 mg PO DAILY #30 tabs 08/25/23
lisinopril 2.5 mg tablet 2.5 mg PO BID #180 tabs 08/25/23
metoprolol succinate 25 mg tablet,extended release 24 hr 25 mg PO BID #180 tabs 08/25/23
nicotine 14 mg/24 hr daily transdermal patch 14 mg transdermal DAILY #30 ea 08/25/23
nitroglycerin 0.4 mg sublingual tablet 0.4 mg sublingual [id number] PRN chest pain #25 tabs 08/25/23
ticagrelor 90 mg tablet (Brilinta) 90 mg PO BID #60 tabs 08/25/23
Home Medication Changes
albuterol sulfate 90 mcg/actuation aerosol inhaler 2 puff inhalation R Q4HPRN PRN sob 08/24/23
cyclobenzaprine 10 mg tablet 10 mg PO TID PRN back spasms 08/24/23
aspirin 81 mg chewable tablet (Children's Aspirin) 81 mg PO DAILY #1 tab 08/25/23
atorvastatin 80 mg tablet 80 mg PO QPM #90 tabs 08/25/23
dapagliflozin propanediol 10 mg tablet (Farxiga) 10 mg PO DAILY #30 tabs 08/25/23
lisinopril 2.5 mg tablet 2.5 mg PO BID #180 tabs 08/25/23
metoprolol succinate 25 mg tablet,extended release 24 hr 25 mg PO BID #180 tabs 08/25/23
nicotine 14 mg/24 hr daily transdermal patch 14 mg transdermal DAILY #30 ea 08/25/23
nitroglycerin 0.4 mg sublingual tablet 0.4 mg sublingual [id number] PRN chest pain #25 tabs 08/25/23
ticagrelor 90 mg tablet (Brilinta) 90 mg PO BID #60 tabs 08/25/23
Pending Results: No
[2023-08-26] MEDS: BRILINTA 90 MG PO (08:34)
[2023-08-26] MEDS: TOPROL XL 25 MG PO (08:35)
[2023-08-26] MEDS: NICODERM TRANSDERMAL 14 MG TRANSDERM (08:35)
[2023-08-26] MEDS: LOW STRENGTH ASPIRIN 81 MG PO (08:35)
[2023-08-26] MEDS: ZESTRIL 2.5 MG PO (08:35)
[2023-08-26] MEDS: FARXIGA 10 MG PO (08:35)
--- NOTE | 2023-08-26 09:55 | PTCARENOTE ---
Went over the patient's discharge instructions and he was discharged home.
== END 2023-08-26 10:12 | disposition home or self-care (01) | DRG 322 ==
LOC: IVU 12:03
PROVIDERS: Nurse Practitioner; ADMITTING PHYSICIAN Internal Medicine Cardiovascular Disease; EMERGENCY PHYSICIAN Emergency Medicine
PROC: 02C03ZZ Extirpation of Matter from Coronary Artery, One Artery, Percutaneous Approach (ICD-10-PCS; 2023-08-23)
PROC: 027034Z Dilation of Coronary Artery, One Artery with Drug-eluting Intraluminal Device, Percutaneous Approach (ICD-10-PCS; 2023-08-23)
PROC: 4A023N7 Measurement of Cardiac Sampling and Pressure, Left Heart, Percutaneous Approach (ICD-10-PCS; 2023-08-23)
PROC: B2111ZZ Fluoroscopy of Multiple Coronary Arteries using Low Osmolar Contrast (ICD-10-PCS; 2023-08-23)
PROC: B240ZZ3 Ultrasonography of Single Coronary Artery, Intravascular (ICD-10-PCS; 2023-08-23)
PROC: B2151ZZ Fluoroscopy of Left Heart using Low Osmolar Contrast (ICD-10-PCS; 2023-08-23)
DX: I21.02 ST elevation (STEMI) myocardial infarction involving left anterior descending coronary artery (principal); F17.210 Nicotine dependence, cigarettes, uncomplicated; N28.81 Hypertrophy of kidney; I25.10 Atherosclerotic heart disease of native coronary artery without angina pectoris; I25.5 Ischemic cardiomyopathy; E78.5 Hyperlipidemia, unspecified; R73.9 Hyperglycemia, unspecified
CPT/HCPCS: 37252; 80048; 80053; 80061; 83036; 84484; 85025; 85027; 85347; 85610; 85730; 93005; 93306; 93458; 99285; 99406; C1725; C1753; C1769; C1874; C1894; C9606; J1327; Q9950; Q9967

== ENCOUNTER → 2023-11-27 13:31 | Outpatient (REF) | payer OTHER, SELFPAY ==
--- NOTE | 2023-11-27 14:52 | CARDSERVLU ---
Echocardiogram with Lumason completed after protocol screening completed. Allergies verified.
Patent IV site: __left AC_
IV site flushed with 0.9% NaCl pre and post administration.
Diluted bolus method utilized to enhance visualization of ventricular cuello.
Total volume given: ___4.0 mL
Patient tolerated all procedures well without complications.
#20 shelbi placed Left AC. Lumason given. INT removed. dsg applied, pressure held. No bleeding or hematoma noted.
== END ==
LOC: RCS 13:31
PROVIDERS: ATTENDING PHYSICIAN Internal Medicine Cardiovascular Disease; FAMILY PHYSICIAN Family Medicine
DX: I25.5 Ischemic cardiomyopathy (principal)
CPT/HCPCS: 93308; 93321; 93325; Q9950

== ENCOUNTER 2024-03-01 06:25 | Day surgery (SDC) | payer OTHER, SELFPAY ==
[2024-02-09 09:51] VITALS: BMI 26.6
[2024-02-09 10:13] LABS: % Basophils 0.7 % (0-2); % Immature Granulocytes 0.4 % (0-0.5); % Lymphocytes 29.6 % (20.5-51.1); % Monocytes 6.3 % (1.7-9.3); Absolute Basophils 0.1 10^3/uL (0-0.2); Absolute Eosinophils 0.2 10^3/uL (0-0.7); Absolute Lymphocytes 2.2 10^3/uL (1.2-3.4); Absolute Monocytes 0.5 10^3/uL (0.1-0.6); Absolute Neutrophils 4.4 10^3/uL (1.4-6.5); Hematocrit 48.8 % (39.0-52.0); Hemoglobin 16.7 g/dL (13.0-18.0); Mean Corp Hgb Conc. 34.2 g/dL (33.0-37.0); Mean Corpuscular Volume 84.9 fL (80.0-94.0); Mean Platelet Volume 10.4 fL (7.4-10.4); Nucleated Red Blood Cells % 0 % (-); Platelet Count 234 10^3/uL (130-400); Red Blood Cell Count 5.75 10^6/uL (4.70-6.10); White Blood Cell Count 7.3 10^3/uL (4.8-10.8)
[2024-02-09 10:27] LABS: ALT (SGPT) 61 U/L (0-50); AST (SGOT) 45 U/L (17-59); Albumin 4.9 g/dl (3.5-5.0); Alkaline Phosphatase 107 U/L (38-126); Blood Urea Nitrogen 11 mg/dl (9-20); Calcium 10.5 mg/dl (8.4-10.2); Carbon Dioxide 27 mmol/L (22-30); Chloride 103 mmol/L (98-107); Estimated Creatinine Clearance 113 ml/min; Glucose 120 mg/dl (70-99); Potassium 4.7 mmol/L (3.5-5.1); Sodium 142 mmol/L (135-145); Total Bilirubin 0.3 mg/dl (0.2-1.3); Total Protein 7.3 g/dl (6.3-8.2); eGFR > 60.00
[2024-03-01] VITALS (18 sets, daily range): BP systolic 83–108; BP diastolic 49–68
--- NOTE | 2024-03-01 09:58 | W.DS.TRANS ---
DC Summary - Civil Engineering Specialist
-
Discharge Instructions:
Discharge Diagnosis/Procedures ICD implant
Diet Low Cholesterol,2 Gram Sodium
Driving Restrictions No driving for 1 week
Bathing Restrictions OK to Shower
Specialty Instructions Weigh Daily
Instructions:
Stand-Alone Forms: DC Inst - Implanted Device
Changes to Home Medications: No
Discharge Medications:
DC Medications w/original date entered in [facility]
albuterol sulfate 90 mcg/actuation aerosol inhaler 2 puff inhalation R Q4HPRN PRN sob 08/24/23
aspirin 81 mg chewable tablet (Children's Aspirin) 81 mg PO DAILY #1 tab 08/25/23
atorvastatin 80 mg tablet 80 mg PO QPM #90 tabs 08/25/23
dapagliflozin propanediol 10 mg tablet (Farxiga) 10 mg PO DAILY #30 tabs 08/25/23
nitroglycerin 0.4 mg sublingual tablet 0.4 mg sublingual [id number] PRN chest pain #25 tabs 08/25/23
sertraline 50 mg tablet (Zoloft) 50 mg PO HS 02/07/24
clopidogrel 75 mg tablet (Plavix) 75 mg PO DAILY 02/09/24
metoprolol succinate 25 mg tablet,extended release 24 hr 25 mg PO HS 02/09/24
ezetimibe 10 mg tablet 10 mg PO DAILY 03/01/24
sacubitril 24 mg-valsartan 26 mg tablet (Entresto) 1 tab PO BID 03/01/24
Home Medication Changes
Pending Results: No
--- NOTE | 2024-03-01 10:05 | ITS.CL.ICD ---
Laundry Routeman - ICD
Implantable Cardioverter Defibrillator
Procedure Report:
Date of Procedure: March 01, 2024.
Procedures: Dual chamber ICD implantation.
Indication: Primary prevention. Prior anterior NC with LVEF of 30-35% on maximally tolerated medical therapy. The patient's life expectancy exceeds one year.
Pacing indication: An atrial lead was placed for resting sinus bradycardia that limits beta juan dosing.
Implanting physician: Ravinder Chong M.D.
Implants:
Pulse Generator: [employer]; Model# D233; Serial# [id number].
Atrial Lead: [id number]; Model# 7841-52cm; Serial# [id number].
Ventricular Lead: [employer]; Model# 0672-59cm; Serial# [id number].
Technique: A time out was performed. A 10 mL upper extremity venogram demonstrated a patent vein. The procedure site was identified. The patient was anesthetized by the anesthesia service. Preoperative cefazolin was administered. The patient was
prepped and draped in the usual fashion. Local anesthetic was applied to the left prepectoral subcutaneous tissue. A 3 inch incision was made along the left deltopectoral groove. Dissection was carried to the fascia. The left cephalic vein was not
present in the deltopectoral groove. The left axillary vein was accessed with a percutaneous micro- punctures without difficulty. The leads were introduced with hemostatic peel away introducer sheaths with a retained guidewire technique. The
ventricular lead was placed at the right ventricular apical septum. The ventricular lead was secured to the pectoralis muscle and fascia with two 0-silk sutures. The atrial lead was then placed in the right atrial appendage. The atrial lead was
secured to the pectoralis muscle and fascia with two 0-silk sutures. 10 volt pacing from both leads did not capture the diaphragm. A subcutaneous pocket was created with Bovie cautery. Hemostasis was excellent. The leads were appropriately attached
to the device. The pocket was irrigated with antibiotic solution. The device and leads were placed in the pocket. The incision was closed in three layers with absorbable suture. Steri-strips and an Aquacel dressing were placed. Estimated blood loss
was 5 ml. There were no complications. Fluoroscopy: 5.2 minutes and DAP [id number]. The device was then interrogated after skin closure. Defibrillation threshold testing was not performed.
Device Testing:
RA lead: P: 4.7 mV; Threshold: 0.7 V @ 0.4 ms; Impedance: 667 ohms.
RV lead: R: 19.9 mV; Threshold: 0.5 V @ 0.4 ms; Impedance: 543 ohms.
Final Programming: Tachy: VT/VF 200 bpm; Monitor zone: 170 bpm. Juan: DDDR 50-130 bpm. AV Search on.
Conclusions: Uncomplicated dual chamber ICD implant.
Recommendations: Routine post ICD care.
cc: Yunior Bacon DO and Ramiro Medina DO.
--- NOTE | 2024-03-01 10:32 | PTCARENOTE ---
Pt's blood pressure is 80's/50's. Pt states he has no dizziness, lightheadedness, chest pain, and/ or SOB. Pt states 'I feel really good right now'. Dr Chong made aware and ordered to give PO fluids. Cranberry juice given to pt as ordered. Will
continue to monitor.
[2024-03-01] MEDS: ANCEF 5 IV (12:40)
== END 2024-03-01 13:00 | disposition home or self-care (01) ==
LOC: CATH 06:25
PROVIDERS: ATTENDING PHYSICIAN Internal Medicine Cardiovascular Disease; FAMILY PHYSICIAN Family Medicine; OTHER PHYSICIAN Internal Medicine Cardiovascular Disease
DX: I25.5 Ischemic cardiomyopathy (principal); I25.2 Old myocardial infarction; I10 Essential (primary) hypertension; E78.5 Hyperlipidemia, unspecified; Z87.891 Personal history of nicotine dependence; F32.A Depression, unspecified; F41.9 Anxiety disorder, unspecified; I25.10 Atherosclerotic heart disease of native coronary artery without angina pectoris; Z79.82 Long term (current) use of aspirin; Z79.02 Long term (current) use of antithrombotics/antiplatelets; Z79.899 Other long term (current) drug therapy; Z79.84 Long term (current) use of oral hypoglycemic drugs; R00.1 Bradycardia, unspecified
CPT/HCPCS: 33249; 36415; 71046; 80053; 85025; 93005; C1721; C1777; C1898

== ENCOUNTER → 2025-03-31 12:38 | Outpatient (REF) | payer OTHER, SELFPAY | LOC: RCS 12:38 | PROVIDERS: ATTENDING PHYSICIAN Nurse Practitioner; FAMILY PHYSICIAN Family Medicine | DX: I25.5 Ischemic cardiomyopathy (principal) | CPT/HCPCS: 93306; Q9950 ==